=== PATIENT | male | born 1965 | race Caucasian/White ===

== ENCOUNTER 2021-04-22 07:49 | Outpatient (REF) | payer OTHER, SELFPAY ==
[2021-04-22 16:29] LABS: CREATININE 0.9 mg/dL (0.70-1.30); Calcium 9.2 mg/dL (8.5-10.1); Calculated LDL 170 mg/dL (<100); Chloride 106 mmol/L (98-107); Cholesterol 238 mg/dL (<200); Glucose 81 mg/dL (74-106); HDL Cholesterol 35 mg/dL (40-60); Potassium 4.3 mmol/L (3.5-5.1); Sodium 145 mmol/L (136-145); Triglyceride 168 mg/dL (<150)
[2021-04-22 16:41] LABS: BUN 21 mg/dL (7-18)
== END 2021-04-22 07:50 | disposition home or self-care (01) ==
LOC: NCHCN 07:49
PROVIDERS: Visit Provider Physician Assistant
DX: Z00.00 Encounter for general adult medical examination without abnormal findings (principal); Z13.220 Encounter for screening for lipoid disorders; Z13.228 Encounter for screening for other metabolic disorders
CPT/HCPCS: 80048; 80061

== ENCOUNTER 2021-12-04 03:12 | Outpatient (CLI) | payer OTHER, SELFPAY ==
--- NOTE | 2021-12-04 | DI.RAD_ITS ---
Exam(s) XR LUMBAR SPINE COMPLETE EXAM: XR LUMBAR SPINE COMPLETE CLINICAL HISTORY: LOW BACK PAIN WITH LT SIDED RADICULOPATHY. TECHNIQUE: 2D digital imaging was performed of the lumbar spine. Five images were obtained. AP, la teral, right oblique, left oblique and L5-S1 spot views were obtained. COMPARISON: No exams were available for comparison FINDINGS: BONES: No fracture or destructive lesion. Vertebral bodies are unremarkable. Degenerative changes of the facets at L5-S1 is noted. DISKS: Intervertebral disc spaces are maintained. Endplate osteophytes are seen at L3-L4. ALIGNMENT: Lumbar spinal alignment is within normal limits. No spondylolysis or spondylolisthesis. SOFT TISSUE: Normal. IMPRESSION: Mild degenerative changes in the lumbar spine. DATA REPOSITORY: RADIATION DOSE DELIVERED:
== END 2021-12-04 03:32 ==
PROVIDERS: Visit Provider Physician Assistant
DX: M54.50 Low back pain, unspecified (principal); M54.16 Radiculopathy, lumbar region; M51.36 Other intervertebral disc degeneration, lumbar region
CPT/HCPCS: 72110

== ENCOUNTER → 2021-12-08 01:59 | Outpatient (CLI) | payer OTHER, SELFPAY ==
--- NOTE | 2021-12-08 09:30 | DI.MRI_ITS ---
Exam(s) MR LUMBAR SPINE WO EXAM: MR LUMBAR SPINE WO CLINICAL HISTORY: LBP WITH LT-SIDED RADICULOPATHY, M54.9. TECHNIQUE: Multiplanar multisequence MRI of the Lumbar spine was performed. COMPARISON: CR XR LUMBAR SPINE COMPLETE from 12/04/2021 FINDINGS: Bones: The last intervertebral disc space is designated the L5/S1 level for the numbering purpose of this examination. The vertebral body heights are well maintained. Alignment is satisfactory. The si gnal characteristics are unremarkable. Cord: The conus tip ends at the T12 level. It is of normal size and signal intensity. T12-L1: No disc herniations or bulges are present. L1-2: No disc herniations or bulges are present. L2-3: No disc herniations or bulges are present. L3-4: Minimal disc bulging. L4-5: Small left paracentral disc protrusion which may cause nerve root impingement. No significant neural foraminal narrowing or central canal stenosis. L5-S1: No disc herniations or bulges are present. Soft tissues: The visualized SI joints and sacrum are well maintained. The paraspinal soft tissues ar e unremarkable. Wedge-shaped defect of the left kidney, presumably postsurgical. Area of subjacent h igh T2 signal. Clinical correlation is recommended. IMPRESSION: Small left paracentral disc herniation at L4-5 with question of nerve root impingement. DATA REPOSITORY:
== END ==
PROVIDERS: Visit Provider Physician Assistant
DX: M54.16 Radiculopathy, lumbar region (principal); M51.26 Other intervertebral disc displacement, lumbar region
CPT/HCPCS: 72148

== ENCOUNTER 2021-12-30 17:18 | Outpatient (REF) | payer OTHER, SELFPAY ==
[2021-12-30 23:05] LABS: PSA, Screening 2.7 ng/mL (0.0-3.5)
== END 2021-12-30 17:19 | disposition home or self-care (01) ==
LOC: NCHCN 17:18
PROVIDERS: Visit Provider Physician Assistant
DX: Z12.5 Encounter for screening for malignant neoplasm of prostate (principal)
CPT/HCPCS: 84153

== ENCOUNTER 2022-07-07 14:33 | Outpatient (REF) | payer OTHER, SELFPAY ==
[2022-07-07 15:13] LABS: ALT 25 U/L (16-63); AST 14 U/L (15-37); Albumin 3.7 g/dL (3.4-5.0); Alkaline Phosphatase 42 U/L (46-116); Anion Gap 6.2 mmol/L (3-11); BUN 16 mg/dL (7-18); Bilirubin, Total 0.2 mg/dL (0.2-1.0); CO2 28.8 mmol/L (21.0-32.0); CREATININE 0.8 mg/dL (0.70-1.30); Calcium 8.8 mg/dL (8.5-10.1); Calculated LDL 90 mg/dL (<100); Chloride 108 mmol/L (98-107); Cholesterol 148 mg/dL (<200); Glucose 85 mg/dL (74-106); HDL Cholesterol 42 mg/dL (40-60); Potassium 4.2 mmol/L (3.5-5.1); Sodium 143 mmol/L (136-145); Total Protein 7.3 g/dL (6.4-8.2); Triglyceride 81 mg/dL (<150)
== END 2022-07-07 14:34 | disposition home or self-care (01) ==
LOC: NCHCN 14:33
PROVIDERS: PCP Physician Assistant; Visit Provider Physician Assistant
DX: I10 Essential (primary) hypertension (principal); E78.5 Hyperlipidemia, unspecified
CPT/HCPCS: 80053; 80061

== ENCOUNTER 2023-06-23 08:06 | Outpatient (REF) | payer SELFPAY ==
[2023-06-23 16:06] LABS: ALT 27 U/L (16-63); AST 19 U/L (15-37); Albumin 4.1 g/dL (3.4-5.0); Alkaline Phosphatase 62 U/L (46-116); Anion Gap 6.6 mmol/L (3-11); BUN 12 mg/dL (7-18); Bilirubin, Total 0.4 mg/dL (0.2-1.0); CO2 31.4 mmol/L (21.0-32.0); CREATININE 0.9 mg/dL (0.70-1.30); Calcium 9.5 mg/dL (8.5-10.1); Calculated LDL 74 mg/dL (<100); Chloride 106 mmol/L (98-107); Cholesterol 140 mg/dL (<200); Estimated GFR 98.38 (mL/min/1.73m2); Glucose 88 mg/dL (74-106); HDL Cholesterol 36 mg/dL (40-60); Potassium 4.4 mmol/L (3.5-5.1); Sodium 144 mmol/L (136-145); Total Protein 7.6 g/dL (6.4-8.2); Triglyceride 154 mg/dL (<150)
[2023-06-24 11:19] LABS: PSA, Screening 2.6 ng/mL (<=3.5)
== END 2023-06-23 08:07 | disposition home or self-care (01) ==
LOC: NCHCN 08:06
PROVIDERS: PCP Physician Assistant; Visit Provider Physician Assistant
DX: Z12.5 Encounter for screening for malignant neoplasm of prostate (principal); E78.5 Hyperlipidemia, unspecified
CPT/HCPCS: 80053; 80061; 84153

== ENCOUNTER → 2023-10-20 02:43 | Outpatient (CLI) | payer SELFPAY ==
--- NOTE | 2023-10-20 07:00 | DI.MRI_ITS ---
Exam(s) MR LOWER EXTREMITY LT WO EXAM: MR LOWER EXTREMITY LT WO CLINICAL HISTORY: pain of left heel and foot,plantar fasciitis of left foot,m79.672,m72.2, TECHNIQUE: Multiplanar multisequence MRI was performed without intravenous contrast. COMPARISON: CR XR FOOT LT COMPLETE from 10/20/2023 Plain films 20 October 2023 FINDINGS: BONES/JOINTS: No fracture or contusion pattern. No bone lesions identified. The talar dome is smooth. The ankle mortise is maintained. No joint effusion is present. LIGAMENTS: The tibiofibular and calcaneofibular ligaments are intact. The talofibular ligaments are i ntact. The deltoid ligament is intact. The syndesmosis is unremarkable. Sinus tarsi is normal. MUSCULOTENDINOUS STRUCTURES: Achilles tendon: Unremarkable. Plantar fascia: Unremarkable. Small amount of fluid is seen at the inferior calcaneus adjacent to t he plantar fascia. Anterior Extensor tendons: Unremarkable. Posterior Tibialis: Unremarkable. Flexor Digitorum longus: Unremarkable. Flexor Hallucis longus: Unremarkable. Peroneus longus: Unremarkable. Peroneus brevis:Unremarkable. SOFT TISSUES: Unremarkable. IMPRESSION: Small amount of fluid is seen between the calcaneus and plantar fascia. The plantar fascia itself is not thickened. DATA REPOSITORY:
--- NOTE | 2023-10-20 08:10 | DI.RAD_ITS ---
Exam(s) XR FOOT LT COMPLETE XR FOOT RT COMPLETE EXAM: XR FOOT LT COMPLETE CLINICAL HISTORY: Pain in left foot and heel, m79.672. TECHNIQUE: 2D digital imaging was performed. Three views. COMPARISON: CR XR FOOT RT COMPLETE from 10/20/2023 FINDINGS: BONES: No acute fracture is present. No bony destructive lesion is seen. JOINTS: No dislocation present. No significant degenerative changes. The plantar arch is maintaine d. SOFT TISSUE: Normal. IMPRESSION: Unremarkable radiographs of both feet. DATA REPOSITORY: RADIATION DOSE DELIVERED:
== END ==
PROVIDERS: PCP Physician Assistant; Visit Provider Podiatrist
DX: M72.2 Plantar fascial fibromatosis (principal); M79.672 Pain in left foot; M79.671 Pain in right foot
CPT/HCPCS: 73630; 73718

== ENCOUNTER 2024-04-03 12:29 | Outpatient (REF) | payer SELFPAY ==
[2024-04-03 16:27] LABS: ALT 28 U/L (16-63); AST 21 U/L (15-37); Alkaline Phosphatase 61 U/L (46-116); Anion Gap 8.9 mmol/L (3-11); BUN 15 mg/dL (7-18); Bilirubin, Total 0.3 mg/dL (0.2-1.0); CO2 30.1 mmol/L (21.0-32.0); CREATININE 0.8 mg/dL (0.70-1.30); Calcium 8.9 mg/dL (8.5-10.1); Calculated LDL 57 mg/dL (<100); Chloride 107 mmol/L (98-107); Cholesterol 109 mg/dL (<200); Estimated GFR 101.32 (mL/min/1.73m2); Glucose 77 mg/dL (74-106); HDL Cholesterol 33 mg/dL (40-60); Potassium 4.6 mmol/L (3.5-5.1); Sodium 146 mmol/L (136-145); Total Protein 7.2 g/dL (6.4-8.2); Triglyceride 96 mg/dL (<150)
[2024-04-04 09:26] LABS: PSA, Screening 2.7 ng/mL (<=4.5)
== END 2024-04-03 12:30 | disposition home or self-care (01) ==
LOC: NCHCN 12:29
PROVIDERS: PCP Physician Assistant; Visit Provider Physician Assistant
DX: E78.5 Hyperlipidemia, unspecified (principal); Z12.5 Encounter for screening for malignant neoplasm of prostate
CPT/HCPCS: 80053; 80061; 84153

== ENCOUNTER 2024-07-24 06:54 | Day surgery (SDC) | payer SELFPAY ==
[2024-07-24 07:26] VITALS: BP 119/82; PULSE 68; RESP 18; TEMP 36.2; O2SAT 99
[2024-07-24] MEDS: Lactated Ringers 1,000 ML 80 ML IV (07:46)
[2024-07-24 08:20] VITALS: BMI 24.3
--- NOTE | 2024-07-24 08:20 | W.ANESPRE ---
General Info Date of Service Date Performed: 07/24/24 Height: 5 ft 8 in Weight: 72.7 kg Body Mass Index (BMI): 24.3 Surgical Procedure: Operation Date: 07/24/24 08:35 Proposed Procedure Side Surgeon p Colonoscopy Sami Anderson MD Pre-Op Diagnosis Post-Op Diagnosis screening colonoscopy Meds Allergies and Home Medications Allergies Allergy/AdvReac Type Severity Reaction Status Date / Time No Known Allergies Allergy Verified 07/24/24 07:20 Home Medication ?Medication ?Instructions ?Recorded atorvastatin 20 mg tablet 20 mg PO DAILY 01/13/22 clonazepam 1 mg tablet 1 mg PO TID PRN 01/13/22 escitalopram oxalate 10 mg tablet 10 mg PO DAILY 01/13/22 (Lexapro) gabapentin 600 mg tablet 600 mg PO TID 01/13/22 doizhzus-kg-uibgm 300 mcg-K 60 1 tab PO DAILY 02/17/22 mcg-lycop 600 mcg-lutein 300 mcg tablet (Centrum Silver Men) celecoxib 200 mg capsule 200 mg PO DAILY 07/11/24 bisacodyl 5 mg tablet,delayed 5 mg PO ONCE Colonoscopy Bowel 07/13/24 release Prep #4 tabs polyethylene glycol 3350 17 238 g PO ONCE #238 grams 07/13/24 gram/dose oral powder Current Visit Medications: Current Medications Generic Name Dose Route Start Last Admin Trade Name Hakan PRN Reason Stop Dose Admin Ringer's Solution 1,000 mls @ 80 mls/hr 07/24/24 06:00 07/24/24 07:46 IV 07/24/24 23:59 80 mls/hr INFUSION HERMILA Administration IV Miscellaneous Supplies 1 each 07/24/24 06:00 Iv Access IV 07/24/24 23:59 DIRECTED HERMILA Sodium Chloride 0 ml 07/24/24 06:00 Normal Saline Flush 10 Ml Syr IV 07/24/24 23:59 PRN PRN Sodium Chloride 0 ml 07/24/24 06:00 Normal Saline 10 Ml Vial IJ 07/24/24 23:59 DIRECTED PRN Sterile Water 0 ml 07/24/24 06:00 Water,Injection,Sterile 10 Ml Vial IJ 07/24/24 23:59 DIRECTED PRN PFSH Active Problems Active Problems: Problem Status Onset Code Cardiac arrhythmia Acute I49.9 GERD (gastroesophageal reflux disease) Chronic K21.9 Foot pain, left Acute M79.672 Other bursal cyst, left ankle and foot Acute M71.372 Pain in right foot Acute M79.671 Sensorineural hearing loss, bilateral Acute H90.3 Conductive hearing loss, unilateral, left ear with restricted hearing on the contralateral side Acute H90.A12 Marginal perforation of tympanic membrane of left ear Acute H72.2X2 Arthritis Acute M19.90 Anxiety disorder Acute F41.9 Back pain Acute M54.9 Neck pain Acute M54.2 Insomnia Acute G47.00 Hyperlipidemia Acute E78.5 Hypertension Chronic I10 Depression Chronic F32.A Pain of left heel Acute M79.672 Tympanic membrane perforation Acute H72.90 Medical History Medical History Abnormal ECG Per PCP Referral: 06/09/22, ECG reveals short ME interval with PAC's, pt asymptomatic Plantar fasciitis of left foot Surgical History Surgical History History of neck surgery x2 [place], [place]. Cervical fusion Tobacco Smoking/Tobacco Use Status: Never Alcohol Alcohol Intake: never Substance Use Substance use: Never Substance use type: does not use Vital Signs and Lab Results Vital Signs Most Recent Vital Signs in EMR: Most Recent Vital Signs Temp Pulse Resp BP Pulse Ox 36.2 C L 68 18 119/82 99 07/24/24 07:26 07/24/24 07:26 07/24/24 07:26 07/24/24 07:26 07/24/24 07:26 Lab Results Blood Type / Crossmatch: No Data to Display Complete Blood Count: No Data to Display Complete Metabolic Panel: No Data to Display Liver Function Panel: No Data to Display Coagulation Panel: No Data to Display Cardiac Panel: No Data to Display Arterial Blood Gas: No Data to Display Venous Blood Gas: No Data to Display Pancreas Panel: No Data to Display Thyroid Panel: No Data to Display Infectious Disease: No Data to Display Blood Cultures: No Data to Display Toxicology Panel: No Data to Display Anesthesia Assessment and Plan Anesthesia History Personal History: No History of Anesthesia Complications Family History: No Family History of Anesthesia Complications Exercise Tolerance Exercise Tolerance: Metabolic Equivalents>4 Pertinent Negatives Pertinent Negatives: No Symptoms of GERD Cardiac & Pulmonary Exam Cardiac Exam: Normal S1/S2 Heart Sounds Pulmonary Exam: Clear Bilateral Breath Sounds Implantable Cardiac Device Does patient have a Pacemaker or an ICD?: No Airway Exam Known Difficult Airway: No Mallampati Class: 2 Mouth Opening: Normal (> 3cm) Thyromental Distance: Greater than 3 cm Neck Range of Motion: Full ROM Neck Circumference: Normal Teeth Condition: Normal Dentition ASA Classification ASA Score: ASA 2 Emergency Case?: No NPO Status NPO Status: NPO Clears >2 hours, Solids >8 hours Anesthesia Plan Resuscitation Status: Full Code Anesthesia Technique: General Anesthesia Airway Planned: Natural Airway Monitors Used: Standard Monitors
--- NOTE | 2024-07-24 08:35 | BOWEL_PTH ---
PATIENT: Darío Doe LOC: [facility] U#:[id number] AGE/SX: 59/M ROOM: RE07/24/[address]: Sami Anderson : 1965 BED: DIS: 07/24/2024 SPEC #: [id number] RECD: 07/24/24 11:52 STATUS: NEFTALY RERoxi #: [id number] ADRIANO: 07/24/24 08:[address]: Sami Anderson DEPT: Surgical Specimen RECD BY: Elisa Doshi ENTERED: 07/24/24 11:57 SP TYPE: Bowel OTHR DR: Corona Le Tissues: 1 - BIOPSY BOWEL 2 - BIOPSY BOWEL 3 - BIOPSY BOWEL 4 - BIOPSY BOWEL Procedures: GROSS AND MICRO LEVEL 4 Comments: [id number]
--- NOTE | 2024-07-24 08:59 | COLE_ITS ---
Date of service: 07/24/24 Time of Service: 08:59 Colonoscopy Report Procedure Description: PROCEDURES PERFORMED: 1. Colonoscopy with hot snare polypectomy x 3 2. Cold forceps polypectomy x 2 3. Ablation/fulguration/destruction of polyps x 2 PREOPERATIVE DIAGNOSIS: Screening colonoscopy POSTOPERATIVE DIAGNOSIS: Colorectal polyps, sigmoid diverticulosis, grade 1 internal hemorrhoids SURGEON: Karla Anderson MD INDICATION for procedure: The patient is a 59-year-old man due for his for screening colonoscopy. No family history of colon cancer. He has never had a colonoscopy before. He has no symptoms. FINDINGS: The terminal ileum was normal. In the descending colon 2 small polyps were removed with cold forceps technique. They appeared adenomatous and were 2- 3 mm in size and next to each other so they were sent as a single specimen. Further on in the descending colon a 3-5 mm sessile polyp was removed with hot snare technique. Further along the sigmoid colon a 3-5 mm sessile polyp was removed with hot snare technique. In the proximal rectum a 5-7 mm polyp was removed with hot snare technique. There are diverticular changes present in the sigmoid colon without any active diverticulitis or stricture. 2 small flat hyperplastic?appearing polyps were ablated with the tip of the hot snare in the rectum. There are grade 1 internal hemorrhoids noted on retroflexion. SURVEILLANCE interval/FOLLOW-UP: 3 years under the assumption the polyps are all adenomatous SPECIMENS: yes EBL: Minimal COMPLICATIONS: None QUALITY of prep: Excellent Procedure in detail: The patient gave written consent and was in agreement with the indications, the potential risks as well as the benefits of the procedure. They were taken to the endoscopy suite and laid in the left lateral decubitus position. A timeout was performed and anesthesia was administered which was tolerated well. I started the procedure. Digital rectal and visual examination was performed and grossly within normal limits. A well-lubricated flexible colonoscope was then introduced and passed without any notable difficulty all the way to the cecum identified by the ileocecal valve and the appendiceal orifice. The terminal ileum was intubated and looked normal. The scope was then slowly withdrawn with the above-noted findings. The patient tolerated the procedure well and was taken to the PACU in hemodynamically stable condition.
--- NOTE | 2024-07-24 09:01 | W.PM.DSUDISC ---
Date of service: 07/24/24 Time of Service: 09:02 Discharge Plan Disposition Patient Disposition: Home Condition: Good Discharge Details Attending Provider: Sami Anderson Primary Care Provider: Corona Le Home Meds and New Rx's Prescriptions: No Action Centrum Silver Men 300-600-300 mcg tablet 1 tab PO DAILY bisacodyl 5 mg tablet,delayed release (DR/EC) 5 mg PO ONCE Qty: 4 0RF Rx Instructions: Per Colonoscopy bowel prep instructions polyethylene glycol 3350 17 gram/dose powder 238 g PO ONCE Qty: 238 0RF Rx Instructions: For Colonoscopy bowel prep, as directed by office gabapentin 600 mg tablet 600 mg PO TID escitalopram oxalate [Lexapro] 10 mg tablet 10 mg PO DAILY clonazepam 1 mg tablet 1 mg PO TID PRN atorvastatin 20 mg tablet 20 mg PO DAILY celecoxib 200 mg capsule 200 mg PO DAILY Discharge Instructions Additional Instructions: FINDINGS: Some polyps were found and removed today. This is why we do the colonoscopy. They are nothing to worry about. They do get sent to pathology lab for testing. He will get called with those results in a couple of weeks. Those results will dictate when your next colonoscopy should be done. Probably in 3 years. Diverticular disease and hemorrhoid disease was also found today. These are both extremely common conditions and they are benign conditions and nothing needs to be done about them. Stand Alone Forms: Colonoscopy Post Instructions Activity:: Activity as Tolerated Diet:: As Tolerated
--- NOTE | 2024-07-24 09:04 | W.ANESPOSTOP ---
Postoperative Evaluation Date, Time and Location Date Performed: 07/24/24 Time Performed: 09:04 Patient Location: Day Surgery Unit Vital Signs Most Recent Imported Vital Signs: Most Recent Vital Signs Temp Pulse Resp BP Pulse Ox 36.2 C L 68 18 119/82 99 07/24/24 07:26 07/24/24 07:26 07/24/24 07:26 07/24/24 07:26 07/24/24 07:26 Pain Score Most Recent Pain Score: Most Recent Pain Score Pain Level 0 07/24/24 07:26 Assessment Mental Status: Awake (Alert & Oriented to Patient Baseline) Airway and Respiratory Function: Patent airway with normal (patient baseline) respiratory exam Cardiovascular Function: Hemodynamically Stable Hydration Status: Adequately Hydrated Nausea & Vomiting: No Nausea or Vomiting Pain: Pt. Denies Any Pain Peripheral Nerve Block: Patient did not receive a nerve block
[2024-07-24 09:09] VITALS: BP 108/70; PULSE 56; RESP 16; TEMP 36.6; O2SAT 95
[2024-07-24 09:34] VITALS: BP 139/87; PULSE 58; RESP 17; TEMP 36.7; O2SAT 100
== END 2024-07-24 09:52 | disposition home or self-care (01) ==
PROVIDERS: PCP Physician Assistant; Visit Provider Student in an Organized Health Care Education/Training Program
PROC: 0DJD8ZZ Inspection of Lower Intestinal Tract, Via Natural or Artificial Opening Endoscopic (ICD-10-PCS; CPT 45378; principal; 2024-07-24 08:30)
DX: Z12.11 Encounter for screening for malignant neoplasm of colon (principal); D12.4 Benign neoplasm of descending colon; K57.30 Diverticulosis of large intestine without perforation or abscess without bleeding; D12.8 Benign neoplasm of rectum; K64.0 First degree hemorrhoids; D12.5 Benign neoplasm of sigmoid colon
CPT/HCPCS: 45385; 45380; 45388; 00123; 88305; J2001; J2704